=== PATIENT | female | born 2000 | race Caucasian/White ===

== ENCOUNTER 2021-03-28 02:34 | Day surgery (SDC) | payer SELFPAY ==
[2021-03-28] VITALS (9 sets, daily range): BP systolic 106–126; BP diastolic 54–76; PULSE 56–76; TEMP 98.8
[~2021-03-28] VITALS: Ht 167.6 cm; Wt 59.1 kg
[2021-03-28 03:08] LABS: BASO # 0.1 (0.0-0.2); BASO % 0.5 % (0.0-2.0); EOS # 0.1 (0.0-0.7); EOS % 0.9 % (0-4.0); GRAN # 8.6 (1.4-6.5); GRAN % 71.6 % (42.2-75.2); HEMATOCRIT 46.3 % (35.0-45.0); HEMOGLOBIN 15.7 g/dl (12.0-15.0); LYMPH # 2.2 (1.2-3.4); LYMPH % 18.6 % (20.0-51.0); MEAN CELL VOLUME 85 fl (80.0-95.0); MEAN CORPUSCULAR HEMOGLOBIN 29 pg (26.0-32.0); MEAN CORPUSCULAR HGB CONC 34 g/dl (33.0-37.0); MEAN PLATELET VOLUME 11.3 fl (7.4-10.4); MONO % 8.1 % (1.7-9.3); PLATELET COUNT 234 K/mm3 (130-400); RED BLOOD COUNT 5.44 M/mm3 (4.10-5.30); REDCELL DISTRIBUTION WIDTH-CV 11.9 % (11.5-14.5)
[2021-03-28 03:14] LABS: ALBUMIN 4.7 gm/dL (3.5-5.0); BILIRUBIN,TOTAL 0.3 mg/dL (0.0-1.0); CALCIUM 9.4 mg/dL (8.4-10.2); CREATININE, serum 0.76 (0.52-1.25); POTASSIUM 3.6 mmol/L (3.4-5.0); TOTAL PROTEIN 7.6 gm/dL (6.4-8.2)
[2021-03-28 03:17] LABS: COLLECTION METHOD CLEAN CATCH
[2021-03-28 03:24] LABS: MUCOUS Present /lpf; PH 5 (5-8); URINE APPEARANCE Hazy; URINE BACTERIA Rare /hpf; URINE BILIRUBIN Negative (NEGATIVE); URINE BLOOD Negative (NEGATIVE); URINE COLOR Yellow; URINE GLUCOSE Negative (NEGATIVE); URINE KETONE 1+ (NEGATIVE); URINE LEUKOCYTE ESTERASE 1+ (NEGATIVE); URINE NITRATE Negative (NEGATIVE); URINE PROTEIN(semi-quant) Negative (NEGATIVE)
--- NOTE | 2021-03-28 10:20 | NUR ---
Patient to room 8 per cart from PACU and arouses to verbal stimuli. IV fluids infusing and site is free of redness. Siderails up x2 and call light in reach. Bandaids x3 on abdomen clean and dry. Abdomen is soft and flat. Denies pain or nausea.
[2021-03-28] MEDS ORDERED: NORCO 325 MG-51 TAB PO (10:31)
--- NOTE | 2021-03-28 10:35 | NUR ---
Talking on telephone. Denies pain or nausea.
--- NOTE | 2021-03-28 10:50 | NUR ---
Resting without complaints.
--- NOTE | 2021-03-28 11:05 | NUR ---
Continues to rest with eyes closed.
--- NOTE | 2021-03-28 11:20 | NUR ---
Awake and eating applesauce. Warm blanket across the abdomen.
--- NOTE | 2021-03-28 11:50 | NUR ---
States that she is having increasing soreness from the incisional areas. Given applesauce to eat and will medicate with or pain medications.
--- NOTE | 2021-03-28 12:00 | NUR ---
Dalton 5mg one tab given for pain at 4/10. IV fluids continue to infuse.
--- NOTE | 2021-03-28 12:20 | NUR ---
Talking with visitor.
--- NOTE | 2021-03-28 13:20 | NUR ---
Awake and denies further pain. No nausea. Tolerated applesauce and crackers.
--- NOTE | 2021-03-28 13:30 | NUR ---
IV to INT and assisted up to the bathroom. Gait steady and is able to void and returns to room.
--- NOTE | 2021-03-28 13:40 | NUR ---
IV discontinued and site is free of redness or swelling. Patient dresses self.
--- NOTE | 2021-03-28 13:57 | NUR ---
Patient dismissal instructions given and voices understanding of these. Instructed that pain medication script was sent to [facility] pharmacy. Provided follow up appointment date and time. Provided Dr. Mckay's office address and phone number for questions and concerns.
--- NOTE | 2021-03-28 14:00 | NUR ---
Patient dismissed to home driven by friend and taken to the emergency room entrance per wheelchair and assisted into vehicle with dismissal instructions in hand.
== END 2021-03-28 14:00 | disposition home or self-care (01) ==
LOC: COL.ER 02:34 → SDCO 08:09
PROVIDERS: Emergency Medicine Emergency Medical Services
DX: K35.80 Unspecified acute appendicitis (principal); F17.290 Nicotine dependence, other tobacco product, uncomplicated; Z20.822 Contact with and (suspected) exposure to COVID-19
CPT/HCPCS: J1100; J1885; J2250; J2270; J2405; J2543; J2704; J3010; J7030; Q9967